=== PATIENT | female | born 1975 | race Caucasian/White ===

== ENCOUNTER 2017-01-13 23:41 | Emergency (ER) | payer OTHER ==
[~2017-01-13] VITALS: Ht 172.7 cm; Wt 67.3 kg
[2017-01-13 23:46] VITALS: TEMP 36.8; Ht 172.7 cm; Wt 67.3 kg
[2017-01-13] MEDS ORDERED: SODIUM CHLORIDE 0.9% 1000ML 1,000 ML IV STA (23:55)
--- NOTE | 2017-01-13 23:57 | EMERGENCY ROOM VISIT NOTE ---
History Report prepared by Bren: Benito Brown Under the Supervision of: Dr. Gus Davila M.D. First contact with patient: 23:50 Chief Complaint: FLANK PAIN Stated Complaint: PAIN IN LWR RIGHT SIDE History of Present Illness The patient is a 41 year old female who presents to the Emergency Room with complaints of persistent right lower quadrant abdominal pain that started around 0800 this morning. She rates this pain a 6/10 in severity. This pain is worse with movement and palpation. Associated symptoms include urinary frequency. Patient denies fevers, chills, nausea, vomiting, vaginal discharge, diarrhea, chest pain, painful urination, or any additional associated symptoms. Patient denies a significant GI history. Source of History: patient Onset: 0800 tihs morning Position: abdomen (RLQ) Symptom Intensity: 6/10 Timing: other (Persistent ) Modifying Factors (Worsening): movement, other (Palpation) Associated Symptoms: + urinary symptoms (frequency), No fevers, No chills, No nausea, No vomiting, No diarrhea Review of Systems See HPI for pertinent positives & negatives. A total of 10 systems reviewed and were otherwise negative. Past Medical & Surgical Medical Problems: (1) No history of gastrointestinal disorder Family History FH: hypertension Social History Smoking Status: Never Smoker Smokeless Tobacco Use: No Alcohol Use: none Drug Use: none Occupation Status: employed Current/Historical Medications Scheduled Control Pills ( Control Pills), 1 TAB PO DAILY Cephalexin Monohydrate (Keflex), 500 MG PO TID Allergies Coded Allergies: Grape (Verified Allergy, Unknown, GRAPE FLAVORING, 01/14/17) Physical Exam Vital Signs Date Time Temp Pulse Resp B/P (MAP) Pulse Ox O2 Delivery O2 Flow Rate FiO2 01/14/17 01:43 80 18 123/83 99 01/14/17 01:26 80 18 123/83 99 Room Air 01/13/17 23:46 36.8 78 18 129/84 100 Room Air Physical Exam GENERAL: Patient is well appearing, in moderate discomfort. HEENT: No acute trauma, normocephalic atraumatic, mucous membranes moist, no nasal congestion, no scleral icterus. NECK: No stridor, no adenopathy, no meningismus, trachea is midline. LUNGS: No dyspnea. Clear to auscultation and equal bilaterally. No wheeze, no rhonchi. HEART: Regular rate and rhythm. No murmurs, rubs, gallops appreciated. ABDOMEN: Moderate right lower quadrant tenderness to palpation. no guarding, questionable rebound, bowel sounds positive, no masses appreciated, no peritonitis. BACK: No midline tenderness, no CVA tenderness EXTREMITIES: Normal motion all extremities, no cyanosis, no edema. NEUROLOGIC: Alert and oriented, no acute motor or sensory deficits, no focal weakness, cranial nerves grossly intact. SKIN: No rash, no jaundice, no diaphoresis. Medical Decision & Procedures ER Provider Diagnostic Interpretation: CT results per my review and statrad interpretation: CT ABDOMEN & PELVIS: Hepatomegaly with innumerable fluid attenuation lesions throughout the liver suggesting polycystic liver disease. Gallbladder, spleen, pancreas, and adrenal glands are unremarkable. No evidence of hydronephrosis or hydroureter. Symmetric renal enhancement. Punctate calcification near the right UVJ (2-80), favor phlebolith over distal ureteral stone given lack of right hydroureteronephrosis; correlate for hematuria. No evidence of bowel obstruction. The appendix is not visualized. Urinary bladder and uterus are unremarkable. No acute osseous findings. Radiologist: Miguel Gannon M.D. Laboratory Results 01/14/17 00:15 Red Blood Count 4.75, Mean Corpuscular Volume 89.5, Mean Corpuscular Hemoglobin 28.6, Mean Corpuscular Hemoglobin Concent 32.0, Mean Platelet Volume 9.3, Neutrophils (%) (Auto) 44.0, Lymphocytes (%) (Auto) 46.4, Monocytes (%) (Auto) 6.9, Eosinophils (%) (Auto) 2.2, Basophils (%) (Auto) 0.4, Neutrophils # (Auto) 4.23, Lymphocytes # (Auto) 4.45, Monocytes # (Auto) 0.66, Eosinophils # (Auto) 0.21, Basophils # (Auto) 0.04 01/14/17 00:15 Test 01/14/17 00:10 01/14/17 00:15 01/14/17 00:21 Urine Color YELLOW Urine Appearance CLEAR (CLEAR) Urine pH 5.5 (4.5-7.5) Urine Specific Slick 1.008 (1.000-1.030) Urine Protein NEG (NEG) Urine Glucose (UA) NEG (NEG) Urine Ketones NEG (NEG) Urine Occult Blood NEG (NEG) Urine Nitrite NEG (NEG) Urine Bilirubin NEG (NEG) Urine Urobilinogen NEG (NEG) Urine Leukocyte Esterase TRACE (NEG) Urine WBC (Auto) 1-5 /hpf (0-5) Urine RBC (Auto) 0-4 /hpf (0-4) Urine Hyaline Casts (Auto) 0 /lpf (0-5) Urine Epithelial Cells (Auto) >30 /lpf (0-5) Urine Bacteria (Auto) 1+ (NEG) Urine Test NEG (NEG) White Blood Count 9.60 K/uL (4.8-10.8) Red Blood Count 4.75 M/uL (4.2-5.4) Hemoglobin 13.6 g/dL (12.0-16.0) Hematocrit 42.5 % (37-47) Mean Corpuscular Volume 89.5 fL (80-100) Mean Corpuscular Hemoglobin 28.6 pg (25-34) Mean Corpuscular Hemoglobin Concent 32.0 g/dl (32-36) Platelet Count 328 K/uL (130-400) Mean Platelet Volume 9.3 fL (7.4-10.4) Neutrophils (%) (Auto) 44.0 % Lymphocytes (%) (Auto) 46.4 % Monocytes (%) (Auto) 6.9 % Eosinophils (%) (Auto) 2.2 % Basophils (%) (Auto) 0.4 % Neutrophils # (Auto) 4.23 K/uL (1.4-6.5) Lymphocytes # (Auto) 4.45 K/uL (1.2-3.4) Monocytes # (Auto) 0.66 K/uL (0.11-0.59) Eosinophils # (Auto) 0.21 K/uL (0-0.5) Basophils # (Auto) 0.04 K/uL (0-0.2) RDW Standard Deviation 49.1 fL (36.4-46.3) RDW Coefficient of Variation 14.9 % (11.5-14.5) Immature Granulocyte % (Auto) 0.1 % Immature Granulocyte # (Auto) 0.01 K/uL (0.00-0.02) Est Creatinine Clear Calc Drug Dose 94.3 ml/min Estimated GFR () 106.9 Estimated GFR (Non- 92.2 BUN/Creatinine Ratio 16.5 (10-20) Calcium Level 9.5 mg/dl (8.5-10.1) Total Bilirubin 0.6 mg/dl (0.2-1) Direct Bilirubin 0.1 mg/dl (0-0.2) Aspartate Amino Transf (AST/SGOT) 19 U/L (15-37) Alanine Aminotransferase (ALT/SGPT) 28 U/L (12-78) Alkaline Phosphatase 66 U/L (45-117) Total Protein 8.8 gm/dl (6.4-8.2) Albumin 4.3 gm/dl (3.4-5.0) Lipase 196 U/L (73-393) Bedside Hemoglobin 15.6 g/dl (12.0-16.0) Bedside Hematocrit 46 % (37-47) Bedside Sodium 142 mEq/L (135-144) Bedside Potassium 3.7 mEq/L (3.3-5.0) Bedside Chloride 100 mEq/L (101-112) Bedside Total CO2 27 mEq/l (24-31) Anion Gap 19.0 mmol/L (16-25) Bedside Blood Urea Nitrogen 13 mg/dl (7-18) Bedside Creatinine 0.7 mg/dl (0.6-1.3) Bedside Glucose (other) 81 mg/dl (70-99) Bedside Ionized Calcium (Juliana) 1.23 mmol/l (1.12-1.32) Laboratory results as reviewed by me. Medications Administered Medications (Trade) Dose Ordered Sig/Juan Route Start Time Stop Time Status Last Admin Dose Admin Sodium Chloride 1,000 ml @ 999 mls/hr Q1H1M STAT IV 01/13/17 23:55 01/14/17 00:55 DC 01/14/17 00:16 999 MLS/HR Cephalexin Monohydrate (Keflex Cap) 500 mg NOW ONCE PO 01/14/17 01:45 01/14/17 01:46 DC 01/14/17 01:41 500 MG ED Course 2352: The patient was evaluated in room B4. A complete history and physical exam was performed. 2355: Ordered Sodium Chloride 1,000 ml @ 999 mls/hr IV. 0105: Upon reevaluation, the patient is resting more comfortably at this time. 0145: Ordered Keflex Cap 500 mg PO. 0148: Reevaluated the patient. Discussed results and discharge instructions: She verbalized understanding and agreement. The patient is ready for discharge. Medical Decision Differential: Appendicitis, , MSK, Diverticulitis, UTI, Renal Colic, Bowel Obstruction, Aortic Pathology, amongst other pathologies entertained. Blood Pressure Screening: Patient was found to have a slightly elevated blood pressure due to circumstances. I do not believe that the patient requires hypertension monitoring. 41 yr old female arrives with RLQ pain and moderate TTP 1 day after mowing. No peritonitis nor evidence emergent surgical abdomen though with TTP felt that imaging reasonable. CT without acute findings, though there is evidence of polycystic liver disease which she was unaware of. Grandfather with history of Liver CA though he had alcoholic cirrhosis and no other family members with issue. She has no evidence currently that this is metastatic disease. She actually looks better with some IV fluids. Will follow up with PCP regarding liver. UA mildly infected side with her frequency will treat at UTI. Will return if worsening or other concerns. Discussed standard abdo pain monitoring. Impression Primary Impression: RLQ abdominal pain Additional Impressions: Cystic disease of liver UTI (urinary tract infection) Polycystic liver disease Scribe Attestation The scribe's documentation has been prepared under my direction and personally reviewed by me in its entirety. I confirm that the note above accurately reflects all work, treatment, procedures, and medical decision making performed by me. Departure Information Dispostion Home / Self-Care Prescriptions Cephalexin Monohydrate (Keflex) 500 Mg Cap 500 MG PO TID for 5 Days, #15 CAP Prov: Gus Davila M.D. 01/14/17 Referrals No Doctor, Assigned (PCP) Forms HOME CARE DOCUMENTATION FORM, IMPORTANT VISIT INFORMATION Patient Instructions My [facility] Additional Instructions It is important you follow up with your primary care provider to discuss further evaluation of the many cysts seen on your CT scan of your abdomen. This is consistent with Polycystic Liver Disease and will need further testing. Return if worsening pain, fevers, vomiting, passing out or other concerns. Return in 24-48 hours if no improvement in pain. Rest and keep well hydrated. Use Tylenol and Motrin as needed for discomfort. Problem Qualifiers
[2017-01-14] MEDS ORDERED: OPTIRAY 320 IV PRN
[2017-01-14] MEDS ORDERED: BCPILLS PO (00:26)
[2017-01-14 00:29] LABS: BASO % 0.4 %; BASO ABS # 0.04 K/uL (0-0.2); COMPLETE YES; EOS % 2.2 %; HEMATOCRIT 42.5 % (37-47); IG% 0.1 %; LYMPH % 46.4 %; LYMPH ABS # 4.45 K/uL (1.2-3.4); MEAN CELL VOLUME 89.5 fL (80-100); MEAN CORPUSCULAR HEMOGLOBIN 28.6 pg (25-34); MEAN PLATELET VOLUME 9.3 fL (7.4-10.4); MONO % 6.9 %; PLATELET COUNT 328 K/uL (130-400); RED BLOOD COUNT 4.75 M/uL (4.2-5.4)
[2017-01-14 00:33] LABS: URINE APPEARANCE CLEAR (CLEAR); URINE BILIRUBIN NEG (NEG); URINE COLOR YELLOW; URINE EPITHELIAL CELL AUTO >30 /lpf (0-5); URINE NITRITE NEG (NEG); URINE PH 5.5 (4.5-7.5); URINE SPECIFIC GRAVITY 1.008 (1.000-1.030); UROBILINOGEN NEG (NEG); ZZUR CULT IF INDIC CLEAN CATCH YES
[2017-01-14 00:35] LABS: ISTAT CREATININE 0.7 mg/dl (0.6-1.3); ISTAT HEMOGLOBIN 15.6 g/dl (12.0-16.0); ISTAT IONIZED CALCIUM 1.23 mmol/l (1.12-1.32)
[2017-01-14 00:35] LABS: MANUAL MICROSCOPIC REQUIRED? NO; REVIEW REQ? NO
[2017-01-14 00:49] LABS: BUN/CREATININE RATIO 16.5 (10-20); CALCIUM 9.5 mg/dl (8.5-10.1); CREATININE 0.8 mg/dl (0.60-1.20); POTASSIUM 3.8 mmol/L (3.5-5.1)
[2017-01-14] MEDS ORDERED: CEPH500C PO (01:37)
[2017-01-14 01:43] VITALS: BP 123/83; PULSE 80; O2SAT 99
[2017-01-14] MEDS ORDERED: CEPHALEXIN MONOHYDRATE 250 MG CAP PO ONE (01:45)
--- NOTE | 2017-01-14 06:47 | DIAGNOSTIC IMAGING REPORT ---
ABDOMEN AND PELVIS CT WITH IV CONTRAST CT DOSE: 310.97 mGy.cm HISTORY: Pain. Nausea. RLQ abdominal pain, TTP TECHNIQUE: Multiaxial CT images of the abdomen and pelvis were performed following the use of intravenous contrast. COMPARISON STUDY: None. FINDINGS: Lung bases are clear. Liver shows diffuse multicystic changes throughout. Spleen is unremarkable. Kidneys negative for calcification or hydronephrosis. The bowel pattern is nonobstructive. The appendix is not well seen. There is no significant pericecal inflammatory change. Bowel pattern again is nonobstructive. Bladder is midline. Uterus is partially retroflexed. There is no significant free fluid within the pelvic cul-de-sac. IMPRESSION: 1. Diffuse multi cystic change of the liver. 2. Otherwise negative study. 3. Poor visibility of the appendix. Electronically signed by: Elbert Beverly M.D. 01/14/2017 6:46 AM Dictated Date/Time: 01/14/2017 6:42 AM
== END 2017-01-14 01:43 | disposition home or self-care (01) ==
LOC: C.EDB 23:41
DX: R10.31 Right lower quadrant pain (principal); Q44.6 Cystic disease of liver; N39.0 Urinary tract infection, site not specified; Z91.018 Allergy to other foods

== ENCOUNTER → 2017-10-01 | Outpatient (CLI) | payer OTHER ==
[~2017-10-01] MED LIST: BCPILLS PO
--- NOTE | 2017-10-01 15:55 | MAMMOGRAPHY REPORT ---
BILATERAL DIGITAL SCREENING MAMMOGRAM TOMOSYNTHESIS WITH CAD: 10/01/2017 CLINICAL HISTORY: Routine screening. Patient has no complaints. TECHNIQUE: Breast tomosynthesis in addition to standard 2D mammography was performed. Current study was also evaluated with a Computer Aided Detection (CAD) system. COMPARISON: No prior exams were available for comparison. BREAST COMPOSITION: The tissue of both breasts is heterogeneously dense, which may obscure small mas ses. FINDINGS: There are a few benign rim calcifications in the left breast. No suspicious mass, architec tural distortion or cluster of suspicious microcalcifications is seen. IMPRESSION: ACR BI-RADS CATEGORY 1: NEGATIVE There is no mammographic evidence of malignancy. A 1 year screening mammogram is recommended. The pa tient will receive written notification of the results. Approximately 10% of breast cancers are not detected with mammography. A negative mammographic report should not delay biopsy if a clinically suggestive mass is present. Kirsten Zuniga M.D. ay/:10/01/2017 13:30:17 Slurry Plant Operator: Chantell BRAY(R)([place]), [facility] letter sent: Normal 1/2 BI-RADS Code: ACR BI-RADS Category 1: Negative
== END | disposition home or self-care (01) ==
LOC: C.MAMM 13:02
PROVIDERS: ATTEND Obstetrics & Gynecology
DX: Z12.31 Encounter for screening mammogram for malignant neoplasm of breast (principal)